=== PATIENT | female | born 1980 | race Two or more races ===

== ENCOUNTER 2019-09-19 19:46 | Emergency (ER) | payer BC, OTHER ==
[~2019-09-19] VITALS: Ht 152.4 cm; Wt 90.7 kg
[2019-09-19] MEDS ORDERED: IBUPROFEN 800 MG TABLET ONE (20:13)
[2019-09-19] MEDS ORDERED: IBUPROFEN 800 MG TABLET PO ONE (20:15)
[2019-09-19 20:29] VITALS: BP 121/78
== END 2019-09-19 20:30 | disposition home or self-care (01) ==
LOC: ER 19:52
DX: S93.601A Unspecified sprain of right foot, initial encounter (principal); X58.XXXA Exposure to other specified factors, initial encounter; Y93.89 Activity, other specified; Y92.89 Other specified places as the place of occurrence of the external cause; Y99.8 Other external cause status
CPT/HCPCS: 73630; A4663

== ENCOUNTER 2020-06-07 20:32 | Emergency (ER) | payer BC, OTHER ==
[~2020-06-07] VITALS: Ht 152.4 cm; Wt 90.7 kg
--- NOTE | 2020-06-07 20:56 | NUR ---
MD Melendrez at bedside for MSE
[2020-06-07] MEDS: IBUPROFEN 400 MG TABLET PO ONE (21:28)
[2020-06-07] MEDS ORDERED: IBUPROFEN 400 MG TABLET ONE (21:31)
--- NOTE | 2020-06-07 21:31 | NUR ---
Patient discharged to home in stable condition via self drive in car. Patient states decreased pain level. no signs of acute detress. patient given work note and two ice packs to take home. Written and verbal after care instructions given. Rx given. Patient verbalizes understanding of instructions. Stressed follow up or return to ER for worsening s/s.
[2020-06-07 21:45] VITALS: BP 135/90
== END 2020-06-07 21:31 | disposition home or self-care (01) ==
LOC: ER 20:34
DX: S29.012A Strain of muscle and tendon of back wall of thorax, initial encounter (principal); X50.0XXA Overexertion from strenuous movement or load, initial encounter; Y93.F2 Activity, caregiving, lifting; Y92.89 Other specified places as the place of occurrence of the external cause; Y99.0 Civilian activity done for income or pay; R03.0 Elevated blood-pressure reading, without diagnosis of hypertension
CPT/HCPCS: A4663

== ENCOUNTER 2022-03-26 07:18 | Outpatient (CLI) | payer BC, OTHER | END 2022-03-26 09:00 | disposition home or self-care (01) | LOC: LAB 07:18 | PROVIDERS: ATTEND Internal Medicine Gastroenterology | DX: Z01.812 Encounter for preprocedural laboratory examination (principal); Z20.822 Contact with and (suspected) exposure to COVID-19 ==

== ENCOUNTER 2022-03-29 08:12 | Day surgery (SDC) | payer BC, OTHER ==
[2022-03-29] MEDS ORDERED: LIDOCAINE-MPF 2% 5 ML VIAL IJ ONE (08:13)
[2022-03-29] MEDS ORDERED: PROPOFOL 200 MG/20 ML BOTTLE IV ONE (08:13)
[2022-03-29 08:39] LABS: HEMATOCRIT 37.5 % (31.2-41.9); MEAN CORPUSCULAR HEMOGLOBIN 28.6 uug (24.7-32.8); MEAN CORPUSCULAR VOLUME 83.9 fL (75.5-95.3); PLATELET COUNT (AUTO) 229 K/uL (179-408)
[2022-03-29 08:40] LABS: *BILIRUBIN,URIN NEGATIVE (NEGATIVE); *BLOOD, URINE NEGATIVE (NEGATIVE); *CLARITY,URINE CLEAR (CLEAR); *COLOR,URINE YELLOW (YELLOW); *KETONES,URINE NEGATIVE (NEGATIVE); *UROBILINOGEN,URINE 0.2 E.U./dl (NORMAL); LEUKOCYTE ESTERASE ,URINE NEGATIVE (NEGATIVE); NITRITE, URINE NEGATIVE (NEGATIVE); PH,URINE 5.5 (5.0-8.0); UGLUCOSE NEGATIVE (NEGATIVE)
[2022-03-29 08:46] LABS: *URINE HCG, QUAL NEGATIVE (NEGATIVE); CARBON DIOXIDE 27 mmol/L (21-32); CHLORIDE 104 mmol/L (98-107); CREATININE 0.7 mg/dL (0.6-1.3); GLUCOSE 104 mg/dL (74-106); POTASSIUM 3.9 mmol/L (3.5-5.1); UREA NITROGEN, BLOOD 7 mg/dL (7-18)
[2022-03-29 08:51] LABS: ALANINE AMINOTRANSFERASE 22 U/L (14-59); ALKALINE PHOSPHATASE 102 U/L (50-136); ASPARTATE AMINOTRANSFERASE < 5 U/L (15-37); BILIRUBIN,TOTAL 0.4 mg/dL (0.2-1.0); TOTAL PROTEIN, SERUM 7.4 g/dL (6.4-8.2)
[2022-03-29] MEDS ORDERED: HYOSCYAMINE SULFATE 0.125 MG TABLET PO ONE (11:00)
== END 2022-03-29 12:15 | disposition home or self-care (01) ==
LOC: DS 08:12
PROVIDERS: ATTEND Internal Medicine Gastroenterology
DX: K59.09 Other constipation (principal); R10.13 Epigastric pain; K29.50 Unspecified chronic gastritis without bleeding; K64.8 Other hemorrhoids; K63.89 Other specified diseases of intestine; K31.89 Other diseases of stomach and duodenum; Z79.899 Other long term (current) drug therapy; Z98.890 Other specified postprocedural states
CPT/HCPCS: 36415; 43239; 45378; 80053; 81003; 84703; 85025; 85730; 88305; 88313; 88342; J3490; J7120; A4663

== ENCOUNTER 2022-06-08 17:00 | Outpatient (CLI) | payer BC, OTHER | END 2022-06-08 23:59 | disposition home or self-care (01) | LOC: RAD 17:00 | PROVIDERS: ATTEND Family Medicine | DX: R05.9 Cough, unspecified (principal); R09.89 Other specified symptoms and signs involving the circulatory and respiratory systems | CPT/HCPCS: 71046 ==

== ENCOUNTER 2022-11-20 10:16 | Emergency (ER) | END 2022-11-20 11:31 | disposition home or self-care (01) | DX: M54.42 Lumbago with sciatica, left side (principal) | CPT/HCPCS: 99283; 81001; 96372; J1885 ==

== ENCOUNTER 2023-03-03 14:25 | Outpatient (CLI) | payer BC, OTHER ==
[~2023-03-03 14:25] MED LIST: CYCL10TA9 PO; NAPR-1164 PO
== END 2023-03-03 23:59 | disposition home or self-care (01) ==
LOC: LAB 14:25
PROVIDERS: ATTEND Family Medicine
DX: R31.9 Hematuria, unspecified (principal)

== ENCOUNTER 2023-03-24 12:00 | Outpatient (CLI) | payer BC, OTHER ==
[2023-03-24 14:14] LABS: CREATININE 0.7 mg/dL (0.6-1.3)
[2023-03-24] MEDS ORDERED: IOHEXOL 300MG/ML 100 ML INFUS..BTL ONE (15:04)
[2023-03-24] MEDS ORDERED: SWABABLE VALVE TRANSFER SET EA MC ONE (15:04)
[2023-03-24] MEDS ORDERED: IV NORMAL SALINE 250 ML IV ONE (15:04)
== END 2023-03-24 23:59 | disposition home or self-care (01) ==
LOC: CT 12:00 → LAB 23:59
PROVIDERS: ATTEND Family Medicine
DX: K57.30 Diverticulosis of large intestine without perforation or abscess without bleeding (principal); R31.9 Hematuria, unspecified; M86.9 Osteomyelitis, unspecified
CPT/HCPCS: 74178; 82565; 84520; 36415; Q9967

== ENCOUNTER 2023-04-26 15:36 | Outpatient (CLI) | payer BC, OTHER ==
[2023-04-26 16:45] LABS: *BILIRUBIN,URIN NEGATIVE (NEGATIVE); *BLOOD, URINE NEGATIVE (NEGATIVE); *CLARITY,URINE CLEAR (CLEAR); *COLOR,URINE YELLOW (YELLOW); *KETONES,URINE NEGATIVE (NEGATIVE); *UROBILINOGEN,URINE 0.2 E.U./dl (NORMAL); LEUKOCYTE ESTERASE ,URINE NEGATIVE (NEGATIVE); NITRITE, URINE NEGATIVE (NEGATIVE); PH,URINE 7.5 (5.0-8.0); UGLUCOSE NEGATIVE (NEGATIVE)
[2023-04-28 08:07] LABS: *TESTOSTERONE, SERUM 31 ng/dL (4-50)
== END 2023-04-26 23:59 | disposition home or self-care (01) ==
LOC: LAB 15:36
PROVIDERS: ATTEND Family Medicine
DX: R31.9 Hematuria, unspecified (principal); E27.9 Disorder of adrenal gland, unspecified
CPT/HCPCS: 70030-TC; 82024; 82533; 84402; 84403

== ENCOUNTER 2023-05-12 11:46 | Outpatient (CLI) | payer BC, OTHER | END 2023-05-12 23:59 | disposition home or self-care (01) | LOC: LAB 11:46 | PROVIDERS: ATTEND Family Medicine | DX: E27.9 Disorder of adrenal gland, unspecified (principal); R31.9 Hematuria, unspecified ==

== ENCOUNTER 2023-07-29 20:07 | Emergency (ER) | payer OTHER ==
[~2023-07-29] VITALS: Ht 154.9 cm; Wt 90.7 kg
[~2023-07-29 20:07] MED LIST changes: +FAMO-132 PO; +ONDA4TAB5 PO
[2023-07-29] MEDS ORDERED: ACETAMINOPHEN 325 MG TABLET PO ONE (20:30)
[2023-07-29] MEDS ORDERED: ACETAMINOPHEN 325 MG TABLET ONE (20:34)
[2023-07-29] MEDS ORDERED: NAPR500T6 PO (21:59)
[2023-07-29] MEDS ORDERED: CYCL5TAB PO (21:59)
[2023-07-29 22:06] VITALS: BP 127/71; TEMP 98; O2SAT 99
== END 2023-07-29 22:07 | disposition home or self-care (01) ==
LOC: ER 20:17
DX: S46.911A Strain of unspecified muscle, fascia and tendon at shoulder and upper arm level, right arm, initial encounter (principal); S20.211A Contusion of right front wall of thorax, initial encounter; Z79.899 Other long term (current) drug therapy; Y04.2XXA Assault by strike against or bumped into by another person, initial encounter; Y93.89 Activity, other specified; Y92.89 Other specified places as the place of occurrence of the external cause; Y99.8 Other external cause status
CPT/HCPCS: 71045; A4663

== ENCOUNTER 2023-08-09 05:55 | Day surgery (SDC) | payer BC, OTHER ==
[~2023-08-09 05:55] MED LIST changes: +CYCL5TAB PO; +NAPR500T6 PO
[2023-08-09 06:25] LABS: *URINE HCG, QUAL NEGATIVE (NEGATIVE)
[2023-08-09 09:27] VITALS: TEMP 97.7
== END 2023-08-09 09:28 | disposition home or self-care (01) ==
LOC: DS 05:55
PROVIDERS: ATTEND Internal Medicine Gastroenterology
DX: K92.1 Melena (principal); K59.09 Other constipation; K64.8 Other hemorrhoids; Z79.899 Other long term (current) drug therapy; Z98.890 Other specified postprocedural states; Z98.51 Tubal ligation status
CPT/HCPCS: 45380; 84703; J7120; A4663